=== PATIENT | male | born 1965 | race Caucasian/White ===

== ENCOUNTER 2020-08-22 21:10 | Outpatient (REF) | payer MEDICAID, SELFPAY ==
[2020-08-22 22:31] LABS: Influenza A PCR NEGATIVE (Negative); Influenza B PCR NEGATIVE (Negative); Resp Syncy Virus RNA Qual PCR NEGATIVE (Negative); SARS COV2 PCR INHOUSE NEGATIVE (Negative)
== END 2020-08-22 21:11 | disposition home or self-care (01) ==
LOC: HO.LAB 21:10
PROVIDERS: PCP Family Medicine; Visit Provider Internal Medicine
DX: Z20.828 Contact with and (suspected) exposure to other viral communicable diseases (principal)
CPT/HCPCS: 0241U

== ENCOUNTER 2020-08-26 16:46 | Outpatient (REF) | payer MEDICAID, SELFPAY ==
[2020-08-26 17:56] LABS: Influenza A PCR NEGATIVE (Negative); Influenza B PCR NEGATIVE (Negative); Resp Syncy Virus RNA Qual PCR NEGATIVE (Negative); SARS COV2 PCR INHOUSE NEGATIVE (Negative)
== END 2020-08-26 16:47 | disposition home or self-care (01) ==
LOC: HO.LAB 16:46
PROVIDERS: PCP Family Medicine; Visit Provider Internal Medicine
DX: Z20.828 Contact with and (suspected) exposure to other viral communicable diseases (principal)
CPT/HCPCS: 0241U

== ENCOUNTER 2020-08-28 20:29 | Emergency (ER) | payer MEDICAID, SELFPAY ==
--- NOTE | 2020-08-28 20:45 | XR_ITS ---
EXAMINATION: XR CHEST CLINICAL INFORMATION: Fevers. COMPARISON: None TECHNIQUE: Frontal view of the chest was obtained. FINDINGS: The lungs are clear. The cardiomediastinal silhouette is normal in size. There is no pleural effusion or pneumothorax. No acute osseous abnormality. XR/XR chest 1V IMPRESSION: No acute cardiopulmonary findings.
--- NOTE | 2020-08-28 20:47 | ED_ITS ---
HPI - Fever General Chief Complaint: Weakness Stated Complaint: Covid symptoms Time Seen by Provider: 08/28/20 20:45 Source: patient Mode of arrival: ambulatory Limitations: no limitations History of Present Illness MD elicited complaint: fever Pertinent past history: diabetes and other Onset (ago): day(s) (4 or 5 days) Measured temperature: 101 F Context: sick contacts (father has COVID) Exacerbating factors: nothing Relieving factors: nothing Associated symptoms: chills, rigors, cough and shortness of breath Treatments prior to arrival fever: none Related Data Allergies Allergy/AdvReac Type Severity Reaction Status Date / Time No Known Allergies Allergy Verified 08/28/20 20:48 Review of Systems Review of Systems: Constitutional : positive Fever, positive Chills, positive fatigue, positive Malaise ENT/Mouth : no sore throat, positive runny nose Eyes: No Discharge Cardiovascular : No Chest Pain, pos SOB Respiratory : pos Cough, No Sputum Gastrointestinal : No Nausea, No Vomiting, No Diarrhea Genitourinary : No Dysuria, No Urinary Frequency Musculoskeletal : positive Myalgia Skin : No rash Neuro : No Headache [facility] Past Medical History Medical History Diabetes Social History Social History (Updated 08/28/20 @ 20:49 by Catherine Rodrigues DO) Smoking Status: Former smoker Advance Directives: No Advance Directives Information Provided: No Physical Exam Vital Signs: Vital Signs: Last Vital Signs Temp 99.2 F 08/28/20 20:49 Pulse 93 08/28/20 20:49 Resp 16 08/28/20 20:49 BP 134/78 08/28/20 20:49 Pulse Ox 97 08/28/20 20:49 Body Mass Index 30.2 Appearance: Alert. Oriented X3. No acute distress. Eyes: Pupils equal, round and reactive to light. ENT: Pharynx normal. Neck: Normal inspection. Neck supple. CVS: Normal heart rate and rhythm. Pulses normal. Respiratory: No respiratory distress. Breath sounds normal. Abdomen: Soft and non-tender. Skin: Skin warm and dry. Normal skin color. Normal skin turgor. Extremities: No lower extremity edema. No calf ttp Neuro: Oriented X 3. No motor deficit. No sensory deficit. Course Course Course Narrative: 3rd negative test and negative CXR MDM - Fever MDM Narrative Medical decision making narrative: 54 yo male with DM has had viral like illness with a positive COVID exposure - he has tested negative so far, he is not toxic, no hypoxia, will obtain rapid test and CXR, dispo per results and findings. Lab Data Labs: Lab Results 08/28/20 Range/Units 21:07 Coronavirus (PCR) NEGATIVE (Negative) Influenza Type A (PCR) NEGATIVE (Negative) Influenza Type B (PCR) NEGATIVE (Negative) RSV RNA Qual (PCR) NEGATIVE (Negative) Discharge Plan Discharge Clinical Impression: Acute viral syndrome Patient Disposition: Home, Self-Care Instructions: Viral Syndrome (ED) Additional Instructions: YOUR COVID, FLU, RSV WERE NEGATIVE, YOUR CHEST XRAY WAS NEGATIVE return to ED for any worsening symptoms or concerns Referrals: Physician,Unknown [Primary Care Provider] - 2 days (pcp if not better) Stand Alone Forms: Work/School Release
[2020-08-28 20:49] VITALS: BP 134/78; PULSE 93; RESP 16; TEMP 37.3; O2SAT 97; BMI 30.2
[2020-08-28 20:50] VITALS: TEMP 38.3
[2020-08-28 22:03] LABS: Influenza A PCR NEGATIVE (Negative); Influenza B PCR NEGATIVE (Negative); Resp Syncy Virus RNA Qual PCR NEGATIVE (Negative); SARS COV2 PCR INHOUSE NEGATIVE (Negative)
== END 2020-08-28 23:28 | disposition home or self-care (01) ==
PROVIDERS: Emergency Provider Emergency Medicine
DX: B34.9 Viral infection, unspecified (principal); Z20.828 Contact with and (suspected) exposure to other viral communicable diseases; E11.9 Type 2 diabetes mellitus without complications; Z87.891 Personal history of nicotine dependence
CPT/HCPCS: 0241U; 71045; 99283

== ENCOUNTER 2023-05-03 18:12 | Emergency (ER) | payer OTHER, SELFPAY ==
[2023-05-03 18:18] VITALS: BP 180/105; PULSE 115
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
--- NOTE | 2023-05-03 18:54 | ECG_ITS ---
Test Reason : PANIC ATTACK Blood Pressure : / mmHG Vent. Rate : 111 BPM Atrial Rate : 111 BPM P-R Int : 172 ms QRS Dur : 082 ms QT Int : 306 ms P-R-T Axes : 050 021 044 degrees QTc Int : 416 ms Sinus tachycardia Possible Left atrial enlargement Abnormal ECG No previous ECGs available Referred By: Milena Gregory Electronically Signed By:ROSALIE PAGAN
[2023-05-03 19:29] LABS: MANUAL DIFF FLAG NO
[2023-05-03 19:35] LABS: Basophils Absolute Auto 0.1 X10*3/uL (0.0-0.2); Basophils Percent Auto 0.4 % (0-2); Eosinophils Percent Auto 0.4 % (0-4); Hematocrit 42.7 % (42.0-52.0); Hemoglobin 14.9 g/dl (14.0-18.0); Imm Gran Abs Auto 0.04 X10*3/uL (0.00-0.03); Imm Gran Pct Auto 0.4 % (0.0-0.4); Lymphocytes Percent Auto 9.1 % (20-40); Mean Corpuscular HGB Conc 34.9 g/dl (31.0-36.0); Mean Corpuscular Hemoglobin 30.7 pg (27.0-33.0); Mean Platelet Volume 10.2 fL (9.4-12.4); Monocytes Absolute Auto 0.6 X10*3/uL (0.1-1.2); Monocytes Percent Auto 5.3 % (2-11); Neutrophils Absolute Auto 9.5 x10*3/uL (2.0-8.3); Neutrophils Percent Auto 84.4 % (45-73); Platelet Count 196 X10*3/uL (160-400); Red Blood Count 4.85 X10*6/uL (4.60-5.80); Red Cell Distribution Width 12.6 % (11.0-16.0); White Blood Count 11.2 X10*3/uL (4.8-10.8)
[2023-05-03 19:41] LABS: Glucose, Whole Blood 188 mg/dL (60-115)
[2023-05-03 19:48] LABS: Alanine Aminotransferase 27 U/L (0-40); Albumin Level 4.3 g/dL (3.5-5.0); Alkaline Phosphatase 96 U/L (39-117); Anion Gap 14 (12-20); Aspartate Amino Transferase 27 U/L (5-37); Bilirubin Direct 0.2 mg/dL (0.0-0.5); Bilirubin Total 0.7 mg/dL (0.0-1.0); Blood Urea Nitrogen 15 mg/dL (9-16); Carbon Dioxide 23 mmol/L (22-29); Chloride 106 mmol/L (96-108); Estimated Glomerular Filt Rate > 60; Glucose Random 192 mg/dL (60-115); Magnesium 2.1 mg/dL (1.6-2.6); Potassium 4.2 mmol/L (3.3-5.1); Sodium 139 mmol/L (135-145); Total Protein 7.2 g/dL (6.5-8.0)
[2023-05-03 19:58] LABS: Appearance Urine Clear; Color Urine Yellow; Glucose Urine UA >=1000 mg/dL (Negative); Leukocyte Esterase Urine Negative (Negative); Nitrite Urine Negative (Negative); UMIC TRIGGER UACC YES; Urine Blood Negative (Negative); Urine Ketones Negative (Negative); Urine Protein Negative (Neg-Trace)
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
[2023-05-03 20:01] VITALS: BP 172/90; PULSE 110; RESP 18; TEMP 36.3; O2SAT 98; BMI 32.5
[2023-05-03 20:05] LABS: Bacteria Urine None Seen (None Seen); Hyaline Casts Urine 0-2 /LPF (0-2); RBC Urine 0-2 /HPF (0-2); Squamous Epithelial Cell Urine 0-2 /HPF (0-2); WBC Urine 0-5 /HPF (0-5)
[2023-05-03 20:12] LABS: Troponin-I High Sensitivity 17.5 ng/L (<3.5-35.0)
[2023-05-03 20:57] VITALS: BP 184/88; PULSE 105; RESP 16; O2SAT 95
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
== END 2023-05-03 21:08 | disposition home or self-care (01) ==
PROVIDERS: Physician Assistant Medical; Emergency Provider Student in an Organized Health Care Education/Training Program
DX: F41.1 Generalized anxiety disorder (principal); F43.0 Acute stress reaction; R00.0 Tachycardia, unspecified; Z79.899 Other long term (current) drug therapy
CPT/HCPCS: 36415; 80048; 80076; 81001; 81003; 82947; 83735; 84484; 85025; 93005; 99285

== ENCOUNTER → 2025-03-13 02:17 | Outpatient (BNV) | payer OTHER, SELFPAY | PROVIDERS: Emergency Provider Emergency Medicine; Visit Provider Radiology Diagnostic Radiology | DX: M25.562 Pain in left knee (principal); W19.XXXA Unspecified fall, initial encounter | CPT/HCPCS: 73560 ==

== ENCOUNTER 2025-03-13 03:06 | Emergency (ER) | payer OTHER, SELFPAY ==
--- NOTE | ~2025-03-13 | XR_ITS ---
CLINICAL HISTORY: fall left knee pain 2 views left knee Comparison: None Findings: There is no fracture or dislocation. Joint spaces appear normal. No effusion is seen. Impression: No acute findings. This document has been electronically signed by: John Esquivel MD on 03/13/2025 04:20:38
[2025-03-13 03:08] VITALS: BP 164/86; PULSE 95; RESP 17; TEMP 36.9; O2SAT 98; BMI 34.7
--- NOTE | 2025-03-13 03:37 | PC.NURSE ---
pt declined analgesia stating he is comfortable and tolerating mild pain at this time
--- NOTE | 2025-03-13 04:50 | ED_ITS ---
HPI - Fall General Chief Complaint: Fall Stated Complaint: fall, left knee pain Time Seen by Provider: 03/13/25 04:33 Source: patient Mode of arrival: ambulatory Limitations: no limitations History of Present Illness ED Provider: Dr. Mara French HPI Narrative: Patient comes to the emergency room complaining of left-sided knee pain. Patient states that he has finished yesterday physical therapy for his left knee. Patient states that today he was walking around his house, took his knee brace out, and his knee gave out. Patient fell and landed into his knee. Patient denies hitting his head or losing consciousness, patient denies using blood thinners, takes baby aspirin daily and has been using ibuprofen quite frequently for the previous injury. Patient states that it hurts putting where he had on his left knee. Related Data Previous Rx's ?Medication ?Instructions ?Recorded tramadol 50 mg tablet 50 mg PO BID PRN pain #7 tab s 03/13/25 Allergies Allergy/AdvReac Type Severity Reaction Status Date / Time No Known Allergies Allergy Verified 03/13/25 03:10 Review of Systems Review of Systems: Constitutional : No Weight loss, No Fever, No Chills, No Night Sweats, No Fatigue, No Malaise ENT/Mouth : No Hearing loss, No Ear Pain, No Nasal Congestion, No Sinus Pain, No Hoarseness, No sore throat, No Rhinorrhea, No Swallowing Difficulty Eyes: No Eye Pain, No Swelling, No Redness, No Foreign Body, No Discharge, No Vision Changes Cardiovascular : No Chest Pain, No SOB, No Dyspnea on Exertion, No Orthopnea, No Edema, No Palpitations Respiratory : No Cough, No Sputum, No Wheezing, No Smoke Exposure, No Dyspnea Gastrointestinal : No Nausea, No Vomiting, No Diarrhea, No Constipation, No abdominal Pain, No Hematochezia, No Melena Genitourinary : no irregular bleeding, No Dysuria, No Urinary Frequency, No Hematuria, No Urinary Incontinence, No Urgency, No Flank Pain, No Urinary Flow Changes, No Hesitancy Musculoskeletal : Complaining of left knee pain after falling Skin : No Skin Lesions, No rash Neuro : No Weakness, No Numbness, No Paresthesias, No Loss of Consciousness, No Dizziness, No Headache Psych : No Anxiety/Panic, No Depression, No SI/HI/AH/VH, No Social Issues, Heme/Lymph: No Bruising, No Bleeding,No Lymphadenopathy Endocrine : No Polyuria, No Polydipsia, No Temperature Intolerance [facility] Past Medical History Medical History Diabetes Social History Social History Alcohol intake: never Advance Directives: No Advance Directives Information Provided: Yes Do you have a plan to hurt others: No Plan Physical Exam Exam: Exam: Appearance: Alert. Oriented X3. No acute distress. Eyes: Pupils equal, round and reactive to light. ENT: Pharynx normal. Neck: Normal inspection. Neck supple. No lymph nodes noted. No crepitus CVS: Normal heart rate and rhythm. Pulses normal. Normal S1 and S2 Respiratory: No respiratory distress. Breath sounds normal. No Wheezing. No rales Abdomen: Soft and nontender. No rigidity. No distention. Skin: Skin warm and dry. Normal skin color. Normal skin turgor. Extremities: No lower extremity edema. No Lacerations. No Rash. There is mild swelling on the left knee, patient is able to flex and extend the knee. With Alexis test, patient does have worsening pain and a clicking noise Neuro: Oriented X 3. No motor deficit. No sensory deficit. Moving all extremities. No slurred speech. CN 2 through 12 grossly intact Psych: calm, cooperative, normal affect Vital Signs: Vital Signs: Last Vital Signs Temp 98.5 F 03/13/25 03:08 Pulse 95 03/13/25 03:08 Resp 17 03/13/25 03:08 BP 164/86 H 03/13/25 03:08 Pulse Ox 98 03/13/25 03:08 O2 Del Method Room Air 03/13/25 03:08 BMI result Body Mass Index 34.7 Medical Decision Making Medical Decision Making MDM Narrative: X-ray of the knee does not show any acute abnormalities. Patient's niece seems a bit swollen, probably starting a small effusion. Patient able to flex and extend but no significant pain. However, bearing weight does hurt. Patient has a positive Alexis test, patient likely has a meniscal injury Patient finished physical therapy a few days ago for his left knee. Now he re-injured it again. Patient's knee was placed on a brace. Patient will follow-up with his PCP, has an appointment early next week. Patient was told by his PCP that the insurance with the approve an MRI if he completed 8 sessions of physical therapy which she just did Patient did not do well walking with his knee brace and walker, patient prefers crutches Differential Diagnosis Differential Diagnoses: The differential diagnosis associated with the presentation includes (Patellar fracture, dislocation, meniscal injury, ACL tear) Independent Interpretation I performed an independent interpretation of an: Plain X-Ray Radiology Impression Discussion of test interpretation with radiology: I have reviewed the radiologist's reading. Radiologist Impression: There is no fracture or dislocation. Joint spaces appear normal. No effusion is seen. Impression: No acute findings Discharge Plan Discharge Clinical Impression: Acute knee pain, Fall Patient Disposition: Home, Self-Care Instructions: Crutch Instructions (ED) Additional Instructions: Please follow-up with your primary care physician tomorrow. If you have any worsening or new symptoms, please return to the emergency room or call 911 Prescriptions: New tramadol 50 mg tablet 50 mg PO BID PRN (Reason: pain) Qty: 7 0RF Print Language: Stateless
[2025-03-13 05:13] VITALS: BP 144/78; PULSE 88; RESP 16; TEMP 36.6; O2SAT 98
--- NOTE | 2025-03-13 05:13 | PC.NURSE ---
steady on crutches. demonstrates teaching
== END 2025-03-13 05:14 | disposition home or self-care (01) ==
PROVIDERS: Emergency Provider Emergency Medicine
DX: M25.562 Pain in left knee (principal); Z91.81 History of falling
CPT/HCPCS: 73560; 99283